=== PATIENT | female | born 1995 | race African-American/Black ===

== ENCOUNTER 2017-05-31 13:05 | Emergency (ER) | payer MEDICAID ==
[~2017-05-31] VITALS: Ht 170.2 cm; Wt 46.0 kg
[2017-05-31 13:21] VITALS: BP 127/71; PULSE 86; RESP 16; TEMP 98; O2SAT 100
[2017-05-31] MEDS ORDERED: ONDANSETRON ODT 4 MG TAB PO ONE (13:45)
[2017-05-31] MEDS ORDERED: ACETAMINOPHEN 325 MG TAB PO ONE (13:45)
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
--- NOTE | 2017-05-31 15:05 | RADRPT ---
EXAM DATE/TIME: 05/31/2017 14:32 [facility] COMPARISON: No previous studies available for comparison. INDICATIONS : Fell last night hitting left side of head, vomiting. RADIATION DOSE: 34.94 CTDIvol (mGy) MEDICAL HISTORY : None SURGICAL HISTORY : None. ENCOUNTER: Initial ACUITY: 1 day PAIN SCALE: 6/10 LOCATION: Left cranial TECHNIQUE: Multiple contiguous axial images were obtained of the head. Using automated exposure control and adj ustment of the mA and/or kV according to patient size, radiation dose was kept as low as reasonably a chievable to obtain optimal diagnostic quality images. DICOM format image data is available electro nically for review and comparison. FINDINGS: CEREBRUM: The ventricles are normal for age. No evidence of midline shift, mass lesion, hemorrhage or acute in farction. No extra-axial fluid collections are seen. POSTERIOR FOSSA: The cerebellum and brainstem are intact. The 4th ventricle is midline. The cerebellopontine angle i s unremarkable. EXTRACRANIAL: The visualized portion of the orbits is intact. Small retention cyst inferiorly in the left maxillary antra SKULL: The calvaria is intact. No evidence of skull fracture. CONCLUSION: 1. Small retention cyst in the left maxillary antra. 2. Otherwise negative. No acute intracranial process, trauma or fracture. Houston Nelson MD on May 31, 2017 at 15:02 Board Certified Radiologist. This report was verified electronically.
[2017-05-31] MEDS ORDERED: ZOFR4TAB PO (15:13)
== END 2017-05-31 15:35 | disposition home or self-care (01) ==
LOC: NEPE 13:05
DX: S09.90XA Unspecified injury of head, initial encounter (principal); R42 Dizziness and giddiness; R11.2 Nausea with vomiting, unspecified; R51 Headache; J45.909 Unspecified asthma, uncomplicated; W03.XXXA Other fall on same level due to collision with another person, initial encounter
CPT/HCPCS: 70450; 84703; 99283